=== PATIENT | female | born 1965 | race African-American/Black ===

== ENCOUNTER 2017-06-11 18:34 | Emergency (ER) | payer MEDICAID, OTHER ==
[~2017-06-11] VITALS: Ht 162.6 cm; Wt 77.2 kg
[~2017-06-11 18:34] MED LIST: LOSA1TAB7 PO
[2017-06-11] MEDS ORDERED: KETOROLAC TROMETHAMINE 60 MG/2 ML VIAL IM ONE (21:00)
[2017-06-11 21:13] VITALS: BP 129/78
== END 2017-06-11 21:15 | disposition home or self-care (01) ==
LOC: EMS 18:38
DX: M19.011 Primary osteoarthritis, right shoulder (principal); I10 Essential (primary) hypertension
CPT/HCPCS: 73030; 96372; 99284; J1885